=== PATIENT | female | born 1935 | race Caucasian/White ===

== ENCOUNTER → 2018-02-09 | Outpatient (CLI) | payer OTHER | LOC: BHFA 08:30 | PROVIDERS: ATTEND Internal Medicine Cardiovascular Disease | DX: R06.02 Shortness of breath (principal); I44.7 Left bundle-branch block, unspecified; I42.9 Cardiomyopathy, unspecified | CPT/HCPCS: 78452; 93017; 93306; A9500; J2785 ==